=== PATIENT | male | born 1995 | race Caucasian/White ===

== ENCOUNTER 2017-11-05 10:13 | Emergency (ER) | payer MEDICAID, OTHER ==
[2017-11-05] MEDS ORDERED: Sodium Chloride 0.9% 1,000 ML IV ONE ×2 (10:40→12:49)
[2017-11-05] MEDS ORDERED: Sodium Chloride 0.9% 1,000 ML ONE (10:42)
--- NOTE | 2017-11-05 11:05 | C.PDOC ---
History Of Present Illness 22-year-old male, presents to the emergency department with complaints of crampy diffuse abdominal pain since 01:00 this morning, that is associated with nausea, non-bloody/non-bilious vomiting and watery/non-bloody diarrhea. Patient states he is unable to tolerate PO. Denies fever, travel, back pain, chest pain , shortness of breath, or any other associated symptoms. Of note, patients girlfriend is sick with similar. No other complaints at this time. Time Seen by Provider: 11/05/17 10:30 Chief Complaint (Nursing): Abdominal Pain History Per: Patient History/Exam Limitations: no limitations Onset/Duration Of Symptoms: Days Current Symptoms Are (Timing): Still Present Past Medical History Reviewed: Historical Data, Nursing Documentation, Vital Signs Vital Signs: Last Vital Signs Temp 99.9 F H 11/05/17 15:00 Pulse 90 11/05/17 15:00 Resp 20 11/05/17 15:00 BP 108/70 11/05/17 15:00 Pulse Ox 99 11/05/17 15:00 - Medical History PMH: Anxiety, Asthma, Seizures Surgical History: Appendectomy - [facility] Procedures INDIVID PSYCHOTHERAP NEC (08/06/13) INFLUENZA VACCINATION (08/06/13) OTHER GROUP THERAPY (08/06/13) VACCINATION NEC (08/06/13) Family History: States: No Known Family Hx - Social History Hx Alcohol Use: Yes Hx Substance Use: Yes (benzos, cocaine, marijuana) - Immunization History Hx Tetanus Toxoid Vaccination: No Hx Influenza Vaccination: No Hx Pneumococcal Vaccination: No Review Of Systems Except As Marked, All Systems Reviewed And Found Negative. Constitutional: Negative for: Fever, Chills Cardiovascular: Negative for: Chest Pain Respiratory: Negative for: Cough, Shortness of Breath Gastrointestinal: Positive for: Nausea, Vomiting, Abdominal Pain, Diarrhea Genitourinary: Negative for: Dysuria Musculoskeletal: Negative for: Back Pain Skin: Negative for: Rash Neurological: Negative for: Weakness, Numbness Physical Exam - Physical Exam Appears: Non-toxic, Other (mild painful distress) Skin: Warm, Dry, No Rash Head: Atraumatic, Normacephalic Eye(s): bilateral: Normal Inspection, PERRL, EOMI Nose: Normal Oral Mucosa: Moist Lips: Normal Appearing Throat: No Erythema, No Exudate Neck: Normal ROM, Supple Chest: Symmetrical Cardiovascular: Rhythm Regular, No Friction Rub, No Murmur Respiratory: Normal Breath Sounds, No Accessory Muscle Use, No Wheezing Gastrointestinal/Abdominal: Bowel Sounds (normal), Soft, No Tenderness, No Guarding, No Rebound Extremity: Normal ROM, No Tenderness, No Swelling Neurological/Psych: Oriented x3, Normal Speech, Normal Motor Gait: Steady ED Course And Treatment - Laboratory Results Result Diagrams: 11/05/17 11:15 11/05/17 11:15 O2 Sat by Pulse Oximetry: 100 (on RA) Pulse Ox Interpretation: Normal - Radiology CXR: Viewed By Me, Read By Radiologist CXR Interpretation: Yes: No Acute Disease. No: Infiltrates, Cardiomegaly, Pnemothorax - Other Rad XR ABDOMEN X-Ray: Viewed By Me, Read By Radiologist Interpretation: no active disease Medical Decision Making Medical Decision Making: Plan: * CMP, Lipase * CBC * Chest X-Ray, Abd: XR * Pepcid, IVF, Zofran, Toradol * Reassess and Disposition On first re-exam, the patient reports improvement of symptoms and was given elma herson for PO challenge, but vomited. Reglan IV ordered. On second re-exam, the patient reports improvement of symptoms, Abdomen is soft, non-tender and tolerating PO well. Lungs are CTA, heart is RRR. Follow up with the medical doctor within 1-2 days, Return if worsened. Disposition - Disposition Referrals: [facility] [Outside] Disposition: HOME/ ROUTINE Disposition Time: 15:00 Condition: STABLE Additional Instructions: Follow up with the medical doctor within 1-2 days, Return if worsened. Prescriptions: Famotidine [Pepcid] 20 mg PO BID #20 tab Ibuprofen [Motrin] 1 tab PO TID PRN #30 tab PRN Reason: Pain Ondansetron ODT [Zofran ODT] 1 odt PO BID PRN #10 odt PRN Reason: Nausea/Vomiting Instructions: Gastroenteritis (DC) Forms: [employer] ([place]) - Clinical Impression Clinical Impression: Gastroenteritis - Scribe Statement The provider has reviewed the documentation as recorded by the Scribe (Sophia Lim) All medical record entries made by the Scribe were at my direction and personally dictated by me. I have reviewed the chart and agree that the record accurately reflects my personal performance of the history, physical exam, medical decision making, and the department course for this patient. I have also personally directed, reviewed, and agree with the discharge instructions and disposition.
--- NOTE | 2017-11-05 11:12 | RAD ---
HISTORY: abd pain COMPARISON: No prior. FINDINGS: BOWEL: Normal. No obstruction. No free air. BONES: Normal. OTHER FINDINGS: None. IMPRESSION: No active disease.
--- NOTE | 2017-11-05 11:13 | RAD ---
PROCEDURE: CHEST RADIOGRAPH, 1 VIEW HISTORY: abd pain COMPARISON: 12/17/2015 FINDINGS: LUNGS: Clear. PLEURA: No pneumothorax or pleural fluid seen. CARDIOVASCULAR: Normal. OSSEOUS STRUCTURES: No significant abnormalities. VISUALIZED UPPER ABDOMEN: Normal. OTHER FINDINGS: None. IMPRESSION: No active disease.
[2017-11-05 11:33] LABS: BASO % 0.4 % (0.0-2.0); EOS # 0.1 K/uL (0.0-0.7); EOS % 1.4 % (0.0-4.0); HEMOGLOBIN 16.7 g/dL (12.0-18.0); LYMPH # 1.1 K/uL (1.0-4.3); LYMPH % 11.9 % (20.0-40.0); MEAN CORPUSCULAR HEMOGLOBIN 29.4 pg (27.0-31.0); MEAN PLATELET VOLUME 9.3 fL (7.2-11.7); MONO # 0.9 K/uL (0.0-0.8); MONO % 9.5 % (0.0-10.0); NEUT # 7.3 K/uL (1.8-7.0); NEUT % 76.8 % (50.0-75.0); NRBC % 0.1 % (0.0-2.0); RBC 5.67 Mil/uL (4.40-5.90); RED CELL DISTRIBUTION WIDTH 13.3 % (11.5-14.5); WHITE BLOOD COUNT 9.5 K/uL (4.8-10.8)
[2017-11-05 11:35] LABS: ALB/GLOB RATIO 1.4 (1.0-2.1); ALBUMIN 4.5 g/dL (3.5-5.0); ALT/SGPT 47 U/L (21-72); AST/SGOT 34 U/L (17-59); BLOOD UREA NITROGEN 19 mg/dL (9-20); CALCIUM 8.8 mg/dl (8.6-10.4); GFR AFRICAN-AMERICAN > 60; GFR NON-AFRICAN AMERICAN > 60; LIPASE 69 U/L (23-300)
[2017-11-05 15:01] VITALS: BP 108/70; PULSE 90; RESP 20; TEMP 99.9
[2017-11-05 17:27] VITALS: O2SAT 100
== END 2017-11-05 15:23 | disposition home or self-care (01) ==
LOC: C.ER 10:13
DX: K52.9 Noninfective gastroenteritis and colitis, unspecified (principal)
CPT/HCPCS: 71045; 74018; 80053; 83690; 85025; 96361; 96365; 96375; 99285; J1885; J2270; J2405; J2765; J7040